=== PATIENT | female | born 1985 | race Caucasian/White ===

== ENCOUNTER 2019-04-24 00:50 | Emergency (ER) | payer MEDICAID ==
[~2019-04-24] VITALS: Ht 160 cm; Wt 61.2 kg
[2019-04-24 01:05] VITALS: BP 100/63
[2019-04-24 01:17] LABS: Basophils # (auto) 0 uL; Basophils % (auto) 0.6 % (0.0-2.0); Eosinophils # (auto) 0.1 uL; Eosinophils % (auto) 1.1 % (0.0-7.0); Hematocrit 37.2 % (36.0-46.0); Hemoglobin 12.9 g/dL (12.2-16.2); Lymphocytes % (auto) 24.1 % (10.0-50.0); Mean Corpuscular Hemoglobin 31.3 pg (28.0-32.0); Mean Corpuscular Hgb Conc. 34.8 g/dL (32.0-36.0); Mean Corpuscular Volume 90.1 fL (80.0-100.0); Monocytes # (auto) 1.1 uL; Monocytes % (auto) 13.6 % (0.0-12.0); Neutrophils % (auto) 60.6 % (37.0-80.0); Platelet Count (auto) 247 10^3/uL (140-450); Red Blood Cells 4.13 10^6/uL (4.0-5.20); Red Cell Distribution Width 12.6 % (11.8-14.3); White Blood Cell 8.3 10^3/uL (4.4-10.8)
[2019-04-24 01:34] LABS: Albumin 4.1 g/dL (3.4-5.0); Calcium 8.8 mg/dL (8.5-10.1)
[2019-04-24 01:38] LABS: BUN/Creatinine Ratio 20.3; Bilirubin, Total 0.4 mg/dL (0.2-1.0); Total Protein 7.4 g/dL (6.4-8.2)
[2019-04-24] MEDS ORDERED: CLINDAMYCIN HCL 150 MG CAP PO ONE (03:45)
[2019-04-24] MEDS ORDERED: CEPHALEXIN 250 MG CAP PO ONE ×2 (03:45→04:15)
== END 2019-04-24 06:16 | disposition home or self-care (01) ==
LOC: ER 00:53
DX: L03.116 Cellulitis of left lower limb (principal)
CPT/HCPCS: 36415; 80053; 84702; 85025

== ENCOUNTER → 2020-04-11 | Emergency (ER) | payer MEDICAID ==
[~2020-04-11] VITALS: Ht 160 cm; Wt 61.2 kg
[2020-04-11 02:53] VITALS: BP 127/80
== END | disposition home or self-care (01) ==
LOC: ER 02:12
DX: H92.03 Otalgia, bilateral (principal); M25.572 Pain in left ankle and joints of left foot; F17.210 Nicotine dependence, cigarettes, uncomplicated; Z88.1 Allergy status to other antibiotic agents; Z88.8 Allergy status to other drugs, medicaments and biological substances

== ENCOUNTER 2020-08-16 17:26 | Emergency (ER) | payer MEDICAID ==
[~2020-08-16] VITALS: Ht 160 cm; Wt 62.6 kg
[2020-08-16 20:21] VITALS: BP 115/84
== END 2020-08-16 20:55 | disposition home or self-care (01) ==
LOC: ER 17:26
DX: R21 Rash and other nonspecific skin eruption (principal); Z88.1 Allergy status to other antibiotic agents

== ENCOUNTER 2020-08-21 16:07 | Emergency (ER) | payer MEDICAID ==
[~2020-08-21] VITALS: Ht 160 cm; Wt 59.0 kg
[2020-08-21 16:19] VITALS: BP 125/71
[2020-08-21 17:38] LABS: Urine Bacteria MANY /hpf (None Seen); Urine Blood Negative /uL (Negative); Urine Mucus MODERATE (None Seen); Urine Specific Gravity 1.029 (1.001-1.035); Urine WBC 17 /hpf (0 - 5)
[2020-08-21 18:33] LABS: Alcohol, Urine < 3.0 mg/dL (0-10); Amphetamine Screen, Urine POSITIVE (NEGATIVE); Barbiturate Scree,Urine NEGATIVE (NEGATIVE); Benzodiazephine Screen, Urine NEGATIVE (NEGATIVE); Cannabinoid Screen, Urine NEGATIVE (NEGATIVE); Cocaine Screen, Urine NEGATIVE (NEGATIVE)
[2020-08-21 18:41] LABS: Opiate Scree,Urine NEGATIVE (NEGATIVE); Phencyclidine Screen, Urine NEGATIVE (NEGATIVE)
== END 2020-08-21 20:02 | disposition home or self-care (01) ==
LOC: ER 16:07
DX: T78.40XA Allergy, unspecified, initial encounter (principal); R21 Rash and other nonspecific skin eruption; F17.210 Nicotine dependence, cigarettes, uncomplicated; Z32.02 Encounter for pregnancy test, result negative; X58.XXXA Exposure to other specified factors, initial encounter
CPT/HCPCS: 80307; 81001; 81025

== ENCOUNTER 2020-12-31 20:33 | Emergency (ER) | payer MEDICAID ==
[~2020-12-31] VITALS: Ht 160 cm; Wt 61.2 kg
[2020-12-31 23:15] VITALS: BP 140/86
[2020-12-31] MEDS ORDERED: IBUPROFEN 800 MG TAB PO ONE (23:45)
[2021-01-01 00:21] LABS: Basophils # (auto) 0 10 ^3/uL (0-0.2); Basophils % (auto) 0.4 % (0.0-2.0); Eosinophils # (auto) 0.1 10 ^3/uL (0-0.8); Eosinophils % (auto) 0.8 % (0.0-7.0); Hematocrit 35.7 % (36.0-46.0); Hemoglobin 12.4 g/dL (12.2-16.2); Lymphocytes # (auto) 1.7 10 ^3/uL (0.4-5.4); Lymphocytes % (auto) 23.1 % (10.0-50.0); Mean Corpuscular Hemoglobin 31.6 pg (28.0-32.0); Mean Corpuscular Hgb Conc. 34.7 g/dL (32.0-36.0); Mean Corpuscular Volume 91.2 fL (80.0-100.0); Monocytes # (auto) 0.8 10 ^3/uL (0-1.3); Monocytes % (auto) 10.4 % (0.0-12.0); Neutrophils # (auto) 4.7 10 ^3/uL (1.6-8.6); Neutrophils % (auto) 65.3 % (37.0-80.0); Nucleated Red Blood Cells % 0.1 %; Platelet Count (auto) 252 10^3/uL (140-450); Red Blood Cells 3.91 10^6/uL (4.0-5.20); Red Cell Distribution Width 12.3 % (11.8-14.3); White Blood Cell 7.3 10^3/uL (4.4-10.8)
[2021-01-01 00:22] LABS: BUN/Creatinine Ratio 12.5; Calcium 8.8 mg/dL (8.5-10.1); Potassium 3.4 mmol/L (3.5-5.1)
== END 2021-01-01 00:32 | disposition left against medical advice (07) ==
LOC: ER 20:33
DX: S92.355A Nondisplaced fracture of fifth metatarsal bone, left foot, initial encounter for closed fracture (principal); F15.10 Other stimulant abuse, uncomplicated; F45.8 Other somatoform disorders; F17.210 Nicotine dependence, cigarettes, uncomplicated; Z88.1 Allergy status to other antibiotic agents; X58.XXXA Exposure to other specified factors, initial encounter; Y93.89 Activity, other specified; Y92.89 Other specified places as the place of occurrence of the external cause; Y99.8 Other external cause status
CPT/HCPCS: 36415; 73620; 80048; 85025

== ENCOUNTER 2021-01-16 22:33 | Emergency (ER) | payer MEDICAID ==
[~2021-01-16] VITALS: Ht 160 cm; Wt 56.7 kg
[2021-01-17 01:20] VITALS: BP 141/96
== END 2021-01-17 06:52 | disposition home or self-care (01) ==
LOC: ER 22:36
DX: L03.312 Cellulitis of back [any part except buttock and flank] (principal); F15.10 Other stimulant abuse, uncomplicated; F17.210 Nicotine dependence, cigarettes, uncomplicated; F12.10 Cannabis abuse, uncomplicated; Z88.1 Allergy status to other antibiotic agents; Z88.8 Allergy status to other drugs, medicaments and biological substances

== ENCOUNTER 2021-04-08 00:16 | Emergency (ER) | payer MEDICAID ==
[~2021-04-08] VITALS: Ht 160 cm; Wt 59.0 kg
[2021-04-08 02:17] VITALS: BP 121/71
== END 2021-04-08 04:25 | disposition home or self-care (01) ==
LOC: ER 00:16
DX: F41.9 Anxiety disorder, unspecified (principal); M79.10 Myalgia, unspecified site; F17.210 Nicotine dependence, cigarettes, uncomplicated; Z88.1 Allergy status to other antibiotic agents; Z88.8 Allergy status to other drugs, medicaments and biological substances; Z20.822 Contact with and (suspected) exposure to COVID-19
CPT/HCPCS: 36415; 87426; 87804

== ENCOUNTER 2021-10-09 16:20 | Emergency (ER) | payer MEDICAID ==
[~2021-10-09] VITALS: Ht 167.6 cm; Wt 59.0 kg
[2021-10-09 16:20] VITALS: BP 112/72
[2021-10-09] MEDS ORDERED: KETOROLAC TROMETH 60MG/2ML VIAL IM ONE (20:15)
[2021-10-09] MEDS ORDERED: LORazepam 0.5 MG TAB PO ONE (20:15)
== END 2021-10-10 00:25 | disposition left against medical advice (07) ==
LOC: ER 16:20 → EDBD 16:20 → ER 10-10 00:25
DX: F41.9 Anxiety disorder, unspecified (principal); F17.210 Nicotine dependence, cigarettes, uncomplicated; F12.10 Cannabis abuse, uncomplicated; F15.10 Other stimulant abuse, uncomplicated; Z88.1 Allergy status to other antibiotic agents
CPT/HCPCS: 71045; 82962; 93005

== ENCOUNTER 2021-12-31 22:53 | Emergency (ER) | payer MEDICAID ==
[~2021-12-31] VITALS: Ht 160 cm; Wt 59.0 kg
[2022-01-01 02:45] VITALS: BP 109/67
[2022-01-01] MEDS ORDERED: CEPH-322 PO (03:11)
[2022-01-01] MEDS ORDERED: ACET-1079 PO (03:11)
[2022-01-01] MEDS ORDERED: LEVO50TA7 PO (03:11)
[2022-01-01 03:52] LABS: Urine Bacteria FEW /hpf (None Seen); Urine Blood Negative /uL (Negative); Urine Mucus FEW (None Seen); Urine Specific Gravity 1.026 (1.001-1.035); Urine WBC 10 /hpf (0 - 5)
== END 2022-01-01 03:37 | disposition home or self-care (01) ==
LOC: ER 22:53
DX: N39.0 Urinary tract infection, site not specified (principal); M79.672 Pain in left foot; E03.9 Hypothyroidism, unspecified; F17.210 Nicotine dependence, cigarettes, uncomplicated; Z88.1 Allergy status to other antibiotic agents; Z88.8 Allergy status to other drugs, medicaments and biological substances
CPT/HCPCS: 81001

== ENCOUNTER 2022-03-10 03:19 | Emergency (ER) | payer MEDICAID ==
[~2022-03-10] VITALS: Ht 160 cm; Wt 58.1 kg
[~2022-03-10 03:19] MED LIST: ACET-1079 PO; CEPH-322 PO; LEVO50TA7 PO
[2022-03-10] MEDS ORDERED: cefTRIAXone SOD 1,000 MG VL IM ONE (04:30)
[2022-03-10 04:42] LABS: Urine Bacteria MOD /hpf (None Seen); Urine Blood 1+ /uL (Negative); Urine Mucus FEW (None Seen); Urine Specific Gravity 1.017 (1.001-1.035); Urine WBC 2073 /hpf (0 - 5); Urine WBC Clumps PRESENT /hpf (None Seen)
[2022-03-10] MEDS ORDERED: CEPH-509 PO (05:08)
[2022-03-10 05:23] VITALS: BP 116/70
== END 2022-03-10 05:08 | disposition home or self-care (01) ==
LOC: ER 03:19
DX: N39.0 Urinary tract infection, site not specified (principal); F17.210 Nicotine dependence, cigarettes, uncomplicated; F12.10 Cannabis abuse, uncomplicated; F15.10 Other stimulant abuse, uncomplicated; Z88.1 Allergy status to other antibiotic agents; Z88.8 Allergy status to other drugs, medicaments and biological substances
CPT/HCPCS: 81001; 96372; 99283; J0696

== ENCOUNTER 2022-08-19 17:49 | Emergency (ER) | payer MEDICAID ==
[~2022-08-19] VITALS: Ht 167.6 cm; Wt 63.0 kg
[~2022-08-19 17:49] MED LIST changes: +CEPH-509 PO
[2022-08-19 17:55] VITALS: BP 114/72
== END 2022-08-19 18:06 | disposition left against medical advice (07) ==
LOC: EDBD 17:49 → ER 17:49
DX: R42 Dizziness and giddiness (principal); R41.0 Disorientation, unspecified; R53.1 Weakness; R51.9 Headache, unspecified; Z53.21 Procedure and treatment not carried out due to patient leaving prior to being seen by health care provider

== ENCOUNTER 2023-04-27 17:22 | Emergency (ER) | payer MEDICAID ==
[~2023-04-27] VITALS: Ht 160 cm; Wt 64.2 kg
[~2023-04-27 17:22] MED LIST changes: -CEPH-322 PO; +CEPH250C PO
[2023-04-27 17:38] VITALS: BP 115/65
[2023-04-27] MEDS ORDERED: DOXY-447 PO (18:55)
== END 2023-04-27 19:17 | disposition home or self-care (01) ==
LOC: ER 17:22
DX: L70.0 Acne vulgaris (principal); F41.9 Anxiety disorder, unspecified; F17.210 Nicotine dependence, cigarettes, uncomplicated; F12.90 Cannabis use, unspecified, uncomplicated; F15.90 Other stimulant use, unspecified, uncomplicated; Z59.00 Homelessness unspecified; Z88.1 Allergy status to other antibiotic agents; Z79.899 Other long term (current) drug therapy; Z88.6 Allergy status to analgesic agent